=== PATIENT | female | born 1950 | race Caucasian/White ===

== ENCOUNTER 2024-10-03 14:35 | Inpatient (IN) | payer MEDICARE ==
--- NOTE | 2024-10-03 14:41 | ED ---
General Adult HPI - General Stated complaint: Fall, poss R hip fracture Time Seen by Provider: 10/03/24 14:35 Source: patient, RN notes reviewed, old records reviewed - History of Present Illness Initial comments: This is a 74-year-old female who was out on her back porch and she was attempting to kill a spider and then she tripped over her feet fell onto her right hip and now she has right hip pain and is unable to move it. Patient states she has a diabetic but is not on any blood thinners. Patient denies hitting her head or neck. Patient denies any other injury or any other sites of pain. - Related Data Allergies Allergy/AdvReac Type Severity Reaction Status Date / Time bugs Allergy Unknown Uncoded 10/03/24 14:42 Review of Systems ROS Statement: Those systems with pertinent positive or pertinent negative responses have been documented in the HPI. ROS Other: All systems not noted in ROS Statement are negative. General Exam - General Exam Comments Initial Comments: GENERAL: Patient is well-developed and well-nourished. Patient is nontoxic and well- hydrated and is in moderate distress. ENT: Neck is soft and supple. No significant lymphadenopathy is noted. Oropharynx is clear. Moist mucous membranes. Neck has full range of motion without eliciting any pain. EYES: The sclera were anicteric and conjunctiva were pink and moist. Extraocular movements were intact and pupils were equal round and reactive to light. Ey elids were unremarkable. PULMONARY: Unlabored respirations. Good breath sounds bilaterally. No audible rales rhonchi or wheezing was noted. CARDIOVASCULAR: There is a regular rate and rhythm without any murmurs gallops or rubs. ABDOMEN: Soft and nontender with normal bowel sounds. SKIN: Skin is clear with no lesions or rashes and otherwise unremarkable. NEUROLOGIC: Patient is alert and oriented x3. Cranial nerves II through XII are grossly intact. Motor and sensory are also intact. Normal speech, volume and content. Symmetrical smile. MUSCULOSKELETAL: Normal extremities with adequate strength and full range of motion. LYMPHATICS: No significant lymphadenopathy is noted PSYCHIATRIC: Normal psychiatric evaluation. Course Vital Signs 10/03/24 10/03/24 14:37 15:35 Temperature 98.6 F Pulse Rate 90 93 Respiratory 20 20 Rate Blood Pressure 145/79 132/62 O2 Sat by Pulse 99 99 Oximetry Medical Decision Making - Medical Decision Making EKG is interpreted by myself but EKG shows a sinus rhythm at 87 bpm IL interval 163 QRS of 78 QT intervals 351 QTc is 395. Patient's EKG shows no ST segment elevation or depression. Was pt. sent in by a medical professional or institution ([facility], [facility], urgent care, hospital, or snf...) When possible be specific @ -No Did you speak to anyone other than the patient for history (EMS, parent, family, police, friend...)? What history was obtained from this source @ -No Did you review nursing and triage notes (agree or disagree)? Why? @ -I reviewed and agree with nursing and triage notes Were old charts reviewed (outside hosp., previous admission, EMS record, old EKG, old radiological studies, urgent care reports/EKG's, snf records)? Report findings @ -No old charts were reviewed Differential Diagnosis? @ -Differential Musculoskeletal Muscular strain, contusion, ligament sprain, fracture, arthritis, septic arthritis, bursitis, cellulitis, muscle spasm, nerve compression, DVT, arterial occlusion, herpes zoster, electrolyte abnormality, tumor.... This is not meant to be in all inclusive list EKG interpreted by me (3pts min.). @ -As above X-rays interpreted by me (1pt min.). @ -Chest x-ray shows no acute abnormality. X-ray of the hip shows an intertrochanteric hip with slight angulation. CT interpreted by me (1pt min.). @ -None done U/S interpreted by me (1pt. min.). @ -None done What testing was considered but not performed or refused? (CT, X-rays, U/S, labs)? Why? @ -None What meds were considered but not given or refused? Why? @ -None Did you discuss the management of the patient with other professionals (professionals i.e. [facility], [facility], lab, RT, psych nurse, sexual assault social worker, proof passer, teacher, retail loan officer, case maker)? Give summary @ -I spoke with Dr. James and he agrees to admit the patient and I will admit the patient and consult medicine Was smoking cessation discussed for >3mins.? @ -No Was critical care preformed (if so, how long)? @ -No Were there social determinants of health that impacted care today? How? (Homelessness, low income, unemployed, alcoholism, drug addiction, transportation, low edu. Level, literacy, decrease access to med. care, residential, r ehab)? @ -No Was there de-escalation of care discussed even if they declined (Discuss DNR or withdrawal of care, Hospice)? DNR status @ -No What co-morbidities impacted this encounter? (DM, HTN, Smoking, COPD, CAD, Cancer, CVA, ARF, Chemo, Hep., AIDS, mental health diagnosis, sleep apnea, morbid obesity)? @ -None Was patient admitted / discharged? Hospital course, mention meds given and route, prescriptions, significant lab abnormalities, going to OR and other pertinent info. @ -Patient has a right intertrochanteric hip fracture patient was given pain medicines in the emergency department. Patient will be admitted to Dr. James with a consult to medicine for medical clearance for surgery tomorrow Undiagnosed new problem with uncertain prognosis? @ -No Drug Therapy requiring intensive monitoring for toxicity (Heparin, Nitro, Insulin, Cardizem)? @ -No Were any procedures done? @ -No Diagnosis/symptom? @ -Right intertrochanteric hip fracture Acute, or Chronic, or Acute on Chronic? @ -Acute Uncomplicated (without systemic symptoms) or Complicated (systemic symptoms)? @ -Complicated Side effects of treatment? @ -No Exacerbation, Progression, or Severe Exacerbation? @ -No Poses a threat to life or bodily function? How? (Chest pain, USA, NH, pneumonia, PE, COPD, DKA, ARF, appy, cholecystitis, CVA, Diverticulitis, Homicidal, Suicidal, threat to staff... and all critical care pts) @ -No - Lab Data Result diagrams: 10/03/24 14:47 10/03/24 14:47 Lab Results 10/03/24 10/03/24 10/03/24 Range/Units 14:47 14:47 14:47 WBC 6.57 (4.50-10.00) 10*3/uL RBC 4.18 (4.10-5.20) 10*6/uL Hgb 13.6 (12.0-15.0) g/dL Hct 38.0 (37.2-46.3) % MCV 90.9 (80.0-97.0) fL MCH 32.5 H (27.0-32.0) pg MCHC 35.8 (32.0-37.0) g/dL Plt Count 273 (140-440) 10*3/uL MPV 10.0 (9.5-12.2) fL Immature Gran % (Auto) 0.2 % Neutrophils % 67.1 % Lymphocytes % 21.6 % Monocytes % 8.8 % Eosinophils % 1.5 % Basophils % 0.8 % Immature Gran # 0.01 (0.00-0.04) 10*3/uL Neutrophils # 4.41 (1.80-7.70) 10*3/uL Lymphocytes # 1.42 (0.90-5.00) 10*3/uL Monocytes # 0.58 (0.20-1.00) 10*3/uL Eosinophils # 0.10 (0.04-0.35) 10*3/uL Basophils # 0.05 (0.00-0.10) 10*3/uL PT 10.6 (10.0-12.5) sec INR 0.9 (<1.2) APTT 21.7 L (22.0-30.0) sec Sodium 136 L (137-145) mmol/L Potassium 4.4 (3.5-5.1) mmol/L Chloride 101 (98-107) mmol/L Carbon Dioxide 19 L (22-30) mmol/L Anion Gap 16 mmol/L BUN 17 (7-17) mg/dL Creatinine 0.79 (0.52-1.04) mg/dL Est GFR (CKD-EPI)AfAm 85 (>60 ml/min/1.73 sqM) Est GFR (CKD-EPI)NonAf 74 (>60 ml/min/1.73 sqM) Glucose 247 H (74-99) mg/dL Calcium 10.0 (8.4-10.2) mg/dL Total Bilirubin 1.4 H (0.2-1.3) mg/dL AST 18 (14-36) U/L ALT 17 (4-34) U/L Alkaline Phosphatase 125 (38-126) U/L Total Protein 6.9 (6.3-8.2) g/dL Albumin 4.4 (3.5-5.0) g/dL Disposition Clinical Impression: Fall, Intertrochanteric fracture of right hip Disposition: ADMITTED IP TO THIS HOSP Referrals: None,Stated [REFERRING] - 1-2 days Time of Disposition: 16:10
[2024-10-03] MEDS: KETOROLAC 15 MG/ML 1 ML VIAL IVP STA (14:46)
[2024-10-03 15:06] LABS: Basophils # (A) 0.05 10*3/uL (0.00-0.10); Basophils % (A) 0.8 %; Eosinophils % (A) 1.5 %; HGB 13.6 g/dL (12.0-15.0); Lymphocytes # (A) 1.42 10*3/uL (0.90-5.00); Lymphocytes % (A) 21.6 %; MCH 32.5 pg (27.0-32.0); MCHC 35.8 g/dL (32.0-37.0); MCV 90.9 fL (80.0-97.0); Monocytes # (A) 0.58 10*3/uL (0.20-1.00); Monocytes % (A) 8.8 %; Neutrophils # (A) 4.41 10*3/uL (1.80-7.70); Neutrophils % (A) 67.1 %; Platelet Count 273 10*3/uL (140-440); RBC 4.18 10*6/uL (4.10-5.20); RDW 12.8 % (11.5-14.5); WBC 6.57 10*3/uL (4.50-10.00)
[2024-10-03 15:18] LABS: ALT 17 U/L (4-34); AST 18 U/L (14-36); African American GFR (CKD) 85 (>60 ml/min/1.73 sqM); Albumin 4.4 g/dL (3.5-5.0); Alkaline Phosphatase 125 U/L (38-126); Anion Gap 16 mmol/L; Blood Urea Nitrogen 17 mg/dL (7-17); Carbon Dioxide 19 mmol/L (22-30); Chloride 101 mmol/L (98-107); Glucose 247 mg/dL (74-99); Non-African American GFR(CKD) 74 (>60 ml/min/1.73 sqM); Potassium 4.4 mmol/L (3.5-5.1); Sodium 136 mmol/L (137-145); Total Bilirubin 1.4 mg/dL (0.2-1.3); Total Protein 6.9 g/dL (6.3-8.2)
[2024-10-03 15:21] LABS: INR 0.9 (<1.2); Prothrombin Time 10.6 sec (10.0-12.5)
[2024-10-03 15:27] LABS: Partial Thromboplastin Time 21.7 sec (22.0-30.0)
--- NOTE | 2024-10-03 15:36 | XR ---
EXAMINATION TYPE: XR chest 1V portable DATE OF EXAM: 10/03/2024 3:29 PM COMPARISON: Chest radiographs from TECHNIQUE: XR chest 1V portable Portable AP radiograph of the chest. CLINICAL INDICATION:Female, 74 years old with history of Short of breath; FINDINGS: Patient is rotated so evaluation. Lungs/Pleura: There is no evidence of pleural effusion, focal consolidation, or pneumothorax. Pulmonary vascularity: Mild pulmonary vascular congestion. Heart/mediastinum: Cardiomediastinal silhouette is enlarged. Musculoskeletal: No acute osseous pathology. Other: Large hiatal hernia. IMPRESSION: 1. Cardiomegaly and mild pulmonary vascular congestion. Correlate with BNP for congestive heart fail ure. 2. Large hiatal hernia. [facility], , 10/03/2024 3:34 PM
--- NOTE | 2024-10-03 15:39 | XR ---
EXAMINATION TYPE: XR Hip RT and AP Pelvis DATE OF EXAM: 10/03/2024 3:29 PM INDICATION: Patient age:Female; 74 years old; Reason for study: Fall; PHH. pain COMPARISON: None. TECHNIQUE: The right hip was examined in the frontal and lateral projections and a AP pelvis. FINDINGS: Acute mildly displaced intertrochanteric fracture of the right proximal femur. Postsurgical changes with fixation hardware involving the left proximal femur. Posterior changes of both hips wit h joint space narrowing and acetabular sclerosis with marginal osteophytosis. Multilevel degenerative changes of the visualized lumbar spine. No soft tissue swelling. IMPRESSION: 1. Acute mildly displaced intertrochanteric fracture of the right proximal femur. 2. Postsurgical fixation of the left proximal femur. 3. Moderate osteoarthritic changes of both hips. [facility], , 10/03/2024 3:37 PM
[2024-10-03] MEDS: HYDROmorphone 0.5 MG/0.5 ML SYRINGE IVP STA (16:19)
[2024-10-03] MEDS: SODIUM CHLORIDE 0.9% 1,000 ML IV ONE (16:21)
--- NOTE | 2024-10-03 17:20 | P.CONS ---
History of Present Illness - Reason for Consult Consult date: 10/03/24 - History of Present Illness Patient is a 74-year-old female with diabetes mellitus and hypertension presented to the ER after a fall earlier this afternoon. Patient stated that she was out on her back porch and was attempting to kill a spider and that she tripped over fell onto her right hip. Patient now endorses right hip pain and is unable to move it. The last time she had a fall was about 4-5 months ago where she injured her right chest wall. Patient reports taking metformin and lisinopril at home. Denies any use of insulin for her diabetes. Patient denies any cardiac history, history of strokes or MIs, or lung disorders. Patient denies fever, chills, chest pain, shortness of breath, nausea or vomiting, belly pain, diarrhea or constipation. ED documentation reviewed. In the ED patient was treated with 0.5 mg of Dilaudid IV x 1, 15 mg Toradol IV x 1 Vitals on admission temperature 98.6, pulse rate 93, respiratory rate 20, blood pressure 132/62, O2 sat 99% on room air CXR shows cardiomegaly and mild pulmonary vascular congestion. Correlate with BNP for congestive heart failure. Large hiatal hernia. Hip/pelvis x-ray shows acute mildly displaced intertrochanteric fracture of the right proximal femur. Postsurgical fixation of the left proximal femur. Moderate osteoarthritic changes of both hips. Labs on admission show WBC 6.57, hemoglobin 13.6, hematocrit 38, platelet 273, PT 10.6, PTT 21.7, INR 0.9, sodium 136, potassium 4.4, chloride 101, carbon dioxide 19, BUN 17, creatinine 0.79, glucose 247, calcium 10.0, total bili 1.4 Review of systems: Pertinent positives and negatives as discussed in HPI, a complete review of systems was performed and all other systems are negative. PMH: Diabetes Mellitus and hypertension PSH: Appendectomy and right knee replacement and left hip replacement FMH: No pertinent family history Allergies: Bugs Social history: Tobacco: Never smoker Alcohol: Daily alcohol use Recreational drugs: No drug use Travel: No recent travel history Sick contacts: No sick contacts Physical examination: Vital signs reviewed General: nontoxic, no distress, appears at stated age Derm: warm, dry, intact Head: atraumatic, normocephalic, symmetric Eyes: EOMI, anicteric sclera Mouth: no lip lesion, mucus membranes moist Cardiovascular: S1 S2 reg, no murmur Lungs: CTA bilateral, no rhonchi, no rales, no accessory muscle use Abdominal: soft, non-tender to palpation Extremities: No cyanosis, clubbing, or pedal edema. Unable to move right lower extremity due to fracture of right proximal femur and pain. Neuro: Alert, Oriented, Gross neurological examination did not reveal any focal deficits. Psych: well appearing, appropriate affect Assessment/Plan: Patient is a 74-year-old female with type 1 diabetes and hypertension presented to the ER after a fall earlier this afternoon. Patient is being evaluated for fracture of the right proximal femur and has been consulted for preoperative medical clearance. Active: #. Preop clearance for right hip fracture Calculated RCRI score of 0 points Risk of major cardiac event is estimated at 3.9% Order BNP as CXR findings may suggest congestive heart failure NSQIP score 0.4% Patient is medically cleared to undergo repair of right hip fracture #. Hypertension Restart home lisinopril 40 mg at bedtime and amlodipine 5 mg at bedtime after surgery #. Diabetes mellitus Initiate sliding scale insulin after surgery Hold metformin 500 mg twice daily #. Fracture of the right proximal femur Defer pain management, DVT prophylaxis and antibiotics to the primary orthopedic surgery team Chronic: #. Hyperlipidemia Restart Lipitor 10 mg at bedtime Discussed with: Patient I saw and evaluated the patient during the agosto and critical portions of this encounter, and discussed the case in detail with the resident author of this note, I agree with the Assessment and Plan, and my changes, if any, are highlighted in blue. Past Medical History Past Medical History: Diabetes Mellitus, Hypertension Additional Past Medical History / Comment(s): tyoe 1 diabetes History of Any Multi-Drug Resistant Organisms: None Reported Past Surgical History: Appendectomy, Joint Replacement Additional Past Surgical History / Comment(s): R knee replacement, L hip replacement Past Psychological History: No Psychological Hx Reported Smoking Status: Never smoker Past Alcohol Use History: Daily Medications and Allergies Home Medications Medication Instructions Recorded Confirmed Type Atorvastatin [Lipitor] 10 mg PO HS 10/03/24 10/03/24 History Cyclobenzaprine [Flexeril] 10 mg PO HS PRN 10/03/24 10/03/24 History EPINEPHrine (Auto Inject) [Epipen] 0.3 mg IM ONCE PRN 10/03/24 10/03/24 History Vitamin D (Unknown Otc) 1 dose PO FR 10/03/24 10/03/24 History amLODIPine [Norvasc] 5 mg PO HS 10/03/24 10/03/24 History lisinopriL [Zestril] 40 mg PO HS 10/03/24 10/03/24 History metFORMIN HCL ER [Glucophage XR] 500 mg PO BID@1300,2000 10/03/24 10/03/24 History Allergies Allergy/AdvReac Type Severity Reaction Status Date / Time bugs Allergy Anaphylaxis Uncoded 10/03/24 16:34 Physical Exam Osteopathic Statement: *. No significant issues noted on an osteopathic structural exam other than those noted in the History and Physical/Consult. Vitals: Vital Signs Temp Pulse Resp BP Pulse Ox 10/03/24 15:35 93 20 132/62 99 10/03/24 14:37 98.6 F 90 20 145/79 99 Intake and Output 10/03/24 10/03/24 10/03/24 06:59 14:59 22:59 Other: Weight 90.718 kg Results CBC & Chem 7: 10/03/24 14:47 10/03/24 14:47 Labs: Abnormal Lab Results - Last 24 Hours (Table) 10/03/24 10/03/24 10/03/24 Range/Units 14:47 14:47 14:47 MCH 32.5 H (27.0-32.0) pg APTT 21.7 L (22.0-30.0) sec Sodium 136 L (137-145) mmol/L Carbon Dioxide 19 L (22-30) mmol/L Glucose 247 H (74-99) mg/dL Total Bilirubin 1.4 H (0.2-1.3) mg/dL
[2024-10-03] MEDS: ONDANSETRON 4 MG/2 ML VIAL IVP STA (17:54)
[2024-10-03] MEDS ORDERED: HYDROmorphone 1 MG/ML 1 ML SYRINGE IVP PRN ×2 (18:48→18:52)
[2024-10-03] MEDS ORDERED: ACETAMINOPHEN TAB 325 MG TAB PO PRN (18:49)
[2024-10-03] MEDS: ATORVASTATIN 10 MG TAB PO SCH (20:03)
[2024-10-03] MEDS: HYDROcodone/APAP 5-325MG 1 EACH TAB PO PRN (20:06)
[2024-10-03 20:37] LABS: Glucose,Whole Blood 300 mg/dL (70-110)
[2024-10-03] MEDS ORDERED: DEXTROSE 50% SYRINGE 50 ML IVP PRN ×2 (20:58)
[2024-10-03] MEDS: HYDROmorphone 0.5 MG/0.5 ML SYRINGE IVP PRN (21:11)
[2024-10-03] MEDS: INSULIN LISPRO (HumaLOG) 100 UNIT/ML 10 mL VL SQ SCH (21:11)
[2024-10-04] MEDS: ONDANSETRON 4 MG/2 ML VIAL IVP PRN (00:02)
[2024-10-04 01:18] LABS: Glucose,Whole Blood 234 mg/dL (70-110)
[2024-10-04] MEDS: PANTOPRAZOLE 40 MG/10 ML VIAL IVP ONE (01:23)
[2024-10-04] MEDS: PROCHLORPERAZINE INJ 10 MG/2 ML VIAL IVP PRN (01:23)
[2024-10-04 06:08] LABS: Glucose,Whole Blood 230 mg/dL (70-110)
[2024-10-04 08:54] LABS: ALT 16 U/L (8-44); AST 22 U/L (13-35); Alkaline Phosphatase 96 U/L (41-126); BUN/Creat Ratio 25.71 Ratio (12.00-20.00); Calcium 8.9 mg/dL (8.7-10.3); Carbon Dioxide 19.1 mmol/L (21.6-31.8); Chloride 104 mmol/L (96-109); Glucose 295 mg/dL (70-110); Potassium 4.8 mmol/L (3.5-5.5); Sodium 138 mmol/L (135-145); Total Bilirubin 1.3 mg/dL (0.3-1.2)
--- NOTE | 2024-10-04 09:55 | P.PN ---
Subjective Progress Note Date: 10/04/24 Patient is very nauseous this morning, continues to be in pain, pending surgery today. Gen: In NAD, non-toxic HEENT: normocephalic, atraumatic, hearing acuity is intant, mucous membranes moist CVS: perfusing all extremities well, no pitting edema, Respiratory: symmetric chest expansion, no accessory muscle use, GI: soft, NTTP, ND, : no suprapubic tenderness, no CVA tenderness MSK/Derm: no rashes, cyanosis Neuro: CN II-XII intact, no motor weakness, Psych: cooperative, euthymic mood, judgment and insight is intact Hospital Course: Patient is a 74-year-old female with diabetes mellitus and hypertension presented to the ER after a fall earlier this afternoon. Vitals on admission temperature 98.6, pulse rate 93, respiratory rate 20, blood pressure 132/62, O2 sat 99% on room air. Labs on admission show WBC 6.57, hemoglobin 13.6, hematocrit 38, platelet 273, PT 10.6, PTT 21.7, INR 0.9, sodium 136, potassium 4.4, chloride 101, carbon dioxide 19, BUN 17, creatinine 0.79, glucose 247, gabriela cium 10.0, total bili 1.4. CXR shows cardiomegaly and mild pulmonary vascular congestion. Correlate with BNP for congestive heart failure. Large hiatal hernia. Hip/pelvis x-ray shows acute mildly displaced intertrochanteric fracture of the right proximal femur. Postsurgical fixation of the left proximal femur. Moderate osteoarthritic changes of both hips. In the ED patient was treated with 0.5 mg of Dilaudid IV x 1, 15 mg Toradol IV x 1. Assessment/Plan: Patient is a 74-year-old female with type 1 diabetes and hypertension presented to the ER after a fall earlier this afternoon. Patient is being evaluated for fracture of the right proximal femur and has been consulted for preoperative medical clearance. Active: #. Preop clearance for right hip fracture Calculated RCRI score of 0 points Risk of major cardiac event is estimated at 3.9% Order BNP as CXR findings may suggest congestive heart failure, this was low and heart failure was ruled out NSQIP score 0.4% Patient is medically cleared to undergo repair of right hip fracture #. Hypertension Restart home lisinopril 40 mg at bedtime and amlodipine 5 mg at bedtime after surgery #. Diabetes mellitus Initiate sliding scale insulin after surgery Hold metformin 500 mg twice daily #. Fracture of the right proximal femur Defer pain management, DVT prophylaxis and antibiotics to the primary orthopedic surgery team Chronic: #. Hyperlipidemia Restart Lipitor 10 mg at bedtime Discussed with: Patient Objective - Vital Signs Vital signs: Vital Signs Temp 97.7 F 10/04/24 07:10 Pulse 77 10/04/24 07:10 Resp 17 10/04/24 07:10 BP 127/60 10/04/24 07:10 Pulse Ox 93 L 10/04/24 07:10 FiO2 Intake & Output 10/03/24 10/04/24 10/04/24 18:59 06:59 18:59 Output Total 900 Balance -900 Weight 90.718 kg 90.718 kg Output: Urine 900 Uretheral (Fernandez) 450 Other: # Voids 0 # Bowel Movements 0 - Labs CBC & Chem 7: 10/03/24 14:47 10/04/24 02:41 Labs: Abnormal Lab Results - Last 24 Hours (Table) 10/03/24 10/03/24 10/03/24 Range/Units 14:47 14:47 14:47 MCH 32.5 H (27.0-32.0) pg APTT 21.7 L (22.0-30.0) sec Sodium 136 L (137-145) mmol/L Carbon Dioxide 19 L (22-30) mmol/L Anion Gap (4.00-12.00) mmol/L BUN/Creatinine Ratio (12.00-20.00) Ratio Glucose 247 H (74-99) mg/dL POC Glucose (mg/dL) (70-110) mg/dL Total Bilirubin 1.4 H (0.2-1.3) mg/dL Total Protein (6.2-8.2) g/dL 10/03/24 10/04/24 10/04/24 Range/Units 20:36 01:17 02:41 MCH (27.0-32.0) pg APTT (22.0-30.0) sec Sodium (137-145) mmol/L Carbon Dioxide 19.1 L (22-30) mmol/L Anion Gap 14.90 H (4.00-12.00) mmol/L BUN/Creatinine Ratio 25.71 H (12.00-20.00) Ratio Glucose 295 H (74-99) mg/dL POC Glucose (mg/dL) 300 H 234 H (70-110) mg/dL Total Bilirubin 1.3 H (0.2-1.3) mg/dL Total Protein 6.0 L (6.2-8.2) g/dL 10/04/24 Range/Units 06:07 MCH (27.0-32.0) pg APTT (22.0-30.0) sec Sodium (137-145) mmol/L Carbon Dioxide (22-30) mmol/L Anion Gap (4.00-12.00) mmol/L BUN/Creatinine Ratio (12.00-20.00) Ratio Glucose (74-99) mg/dL POC Glucose (mg/dL) 230 H (70-110) mg/dL Total Bilirubin (0.2-1.3) mg/dL Total Protein (6.2-8.2) g/dL
[2024-10-04 11:50] LABS: Glucose,Whole Blood 215 mg/dL (70-110)
--- NOTE | 2024-10-04 12:49 | P.HPOR ---
History of Present Illness H&P Date: 10/04/24 Chief Complaint: Right proximal femur fracture This is a very pleasant 74-year-old female with stated past medical history of hypertension, hyperlipidemia, type 2 diabetes not on insulin, prior left hip fracture around 2010, and total right knee replacement around 2009, who stated on 10/03/2024 they were on their back porch and tripped while trying to kill a spider and landed on the right hip. Patient was unable to ambulate afterwards. Patient had right hip pain immediately afterwards. Patient was brought to the [facility] emergency department on 10/03/2024 and pelvis x-ray images revealed acute mildly displaced intertrochanteric fracture of the right proximal femur. Postsurgical fixation of left proximal femur. Moderate osteoarthritis changes of both hips. Patient denied being on anticoagulation. Orthopedic surgery was consulted. Patient stated they live at home with their son. Patient states prior to recent fall they occasionally had right hip pain. At the time of exam patient complained of isolated right hip pain. Patient denied any other pain after the fall. Patient denies chest pain or shortness of breath. Past Medical History Past Medical History: Diabetes Mellitus, Hypertension Additional Past Medical History / Comment(s): tyoe 1 diabetes History of Any Multi-Drug Resistant Organisms: None Reported Past Surgical History: Appendectomy, Joint Replacement Additional Past Surgical History / Comment(s): R knee replacement, L hip replacement Past Anesthesia/Blood Transfusion Reactions: No Reported Reaction Additional Past Anesthesia/Blood Transfusion Reaction / Comment(s): Pt has never received Blood. Past Psychological History: No Psychological Hx Reported Smoking Status: Never smoker Past Alcohol Use History: Daily Medications and Allergies Home Medications Medication Instructions Recorded Confirmed Type Atorvastatin [Lipitor] 10 mg PO HS 10/03/24 10/03/24 History Cyclobenzaprine [Flexeril] 10 mg PO HS PRN 10/03/24 10/03/24 History EPINEPHrine (Auto Inject) [Epipen] 0.3 mg IM ONCE PRN 10/03/24 10/03/24 History Vitamin D (Unknown Otc) 1 dose PO FR 10/03/24 10/03/24 History amLODIPine [Norvasc] 5 mg PO HS 10/03/24 10/03/24 History lisinopriL [Zestril] 40 mg PO HS 10/03/24 10/03/24 History metFORMIN HCL ER [Glucophage XR] 500 mg PO BID@1300,199910/03/24 10/03/24 History Allergies Allergy/AdvReac Type Severity Reaction Status Date / Time bugs Allergy Anaphylaxis Uncoded 10/03/24 16:34 Physical Examination Patient lying in bed. No acute distress. Head is normocephalic and atraumatic. No pain to palpation over the cervical spine or paraspinal muscles. Bilateral upper extremity exam: Inspection: No sign of obvious deformity. Palpation: Nontender to palpation over bilateral clavicle, scapula, shoulder, humerus, elbow, forearm, wrist, hand, or fingers. Vascular: 2+ radial pulse. Sensation: grossly intact to light touch. Bilateral lower extremity exam: Inspection: Right lower extremity externally rotated. No sign of infection, scars, or open lesions over the anterior or lateral right hip. Palpation: Tenderness over the lateral and anterior right hip. Range of motion: Patient had pain with any attempt of passive range of motion of the hip. Calves were soft to compression, negative Homans' sign. Vascular: Dorsalis pedis pulse 2+ bilaterally. Capillary refill under 2 seconds in all toes. Sensation: grossly intact to light touch throughout the bilateral lower extremities. Results - Labs Labs: Abnormal Lab Results - Last 24 Hours (Table) 10/03/24 10/03/24 10/03/24 Range/Units 14:47 14:47 14:47 MCH 32.5 H (27.0-32.0) pg APTT 21.7 L (22.0-30.0) sec Sodium 136 L (137-145) mmol/L Carbon Dioxide 19 L (22-30) mmol/L Anion Gap (4.00-12.00) mmol/L BUN/Creatinine Ratio (12.00-20.00) Ratio Glucose 247 H (74-99) mg/dL POC Glucose (mg/dL) (70-110) mg/dL Total Bilirubin 1.4 H (0.2-1.3) mg/dL Total Protein (6.2-8.2) g/dL 10/03/24 10/04/24 10/04/24 Range/Units 20:36 01:17 02:41 MCH (27.0-32.0) pg APTT (22.0-30.0) sec Sodium (137-145) mmol/L Carbon Dioxide 19.1 L (22-30) mmol/L Anion Gap 14.90 H (4.00-12.00) mmol/L BUN/Creatinine Ratio 25.71 H (12.00-20.00) Ratio Glucose 295 H (74-99) mg/dL POC Glucose (mg/dL) 300 H 234 H (70-110) mg/dL Total Bilirubin 1.3 H (0.2-1.3) mg/dL Total Protein 6.0 L (6.2-8.2) g/dL 10/04/24 10/04/24 Range/Units 06:07 11:49 MCH (27.0-32.0) pg APTT (22.0-30.0) sec Sodium (137-145) mmol/L Carbon Dioxide (22-30) mmol/L Anion Gap (4.00-12.00) mmol/L BUN/Creatinine Ratio (12.00-20.00) Ratio Glucose (74-99) mg/dL POC Glucose (mg/dL) 230 H 215 H (70-110) mg/dL Total Bilirubin (0.2-1.3) mg/dL Total Protein (6.2-8.2) g/dL H & H 10/03/24 Range/Units 14:47 Hgb 13.6 (12.0-15.0) g/dL Hct 38.0 (37.2-46.3) % Coagulation 10/03/24 Range/Units 14:47 INR 0.9 (<1.2) Result Diagrams: 10/03/24 14:47 10/04/24 02:41 Assessment and Plan Assessment: Right intertrochanteric femur fracture Status post ground-level fall Hypertension Hyperlipidemia Type 2 diabetes not on insulin. Plan: The clinical and x-ray findings were discussed with the patient. The case was discussed and the patient was examined with Dr. James. Treatment options were discussed and surgical intervention is recommended. We discussed the surgical plan of an intramedullary right hip screw as well as the expected postoperative course. Risks and benefits were reviewed including (but not limited to) the risks of infection, bleeding, blood clots, anesthesia- related complications and possible need for additional surgery. Questions were invited and answered. The patient expressed understanding and wishes to proceed with surgery. The patient will be kept on bedrest. Continue PRN pain management. Patient to remain NPO. Scheduled for an intramedullary right hip screw this afternoon.
[2024-10-04 14:52] LABS: Glucose,Whole Blood 185 mg/dL (70-110)
[2024-10-04] MEDS: IV FLUID CONTINUATION 1,000 ML IV ONE (14:52)
[2024-10-04] MEDS: LACTATED RINGERS 1,000 ML BAG IV STA (15:31)
[2024-10-04] MEDS ORDERED: TRANEXAMIC 1,000 MG/100ML-NACL 1,000 MG in SALINE 1 100ML.BAG IVPB PRN (15:36)
[2024-10-04] MEDS ORDERED: SUCCINYLCHOLINE CHLORIDE 200 MG/10 ML VIAL IV ONE (16:01)
[2024-10-04] MEDS ORDERED: fentaNYL (PF) 50 MCG/ML 2 ML AMP ONE (16:01)
[2024-10-04] MEDS ORDERED: TRANEXAMIC 1,000 MG/100ML-NACL PREMIX BAG ONE (16:01)
[2024-10-04] MEDS ORDERED: PROPOFOL 10 MG/ML 20 ML VIAL IV ONE (16:01)
[2024-10-04] MEDS ORDERED: MIDAZOLAM 2 MG/2 ML VIAL ONE (16:01)
[2024-10-04] MEDS: SODIUM CHLORIDE 0.9% 100 ML with ceFAZolin 2,000 MG IV ONE (16:07)
[2024-10-04] MEDS ORDERED: TEMAZEPAM 15 MG CAP PO PRN ×2 (17:18→22:00)
[2024-10-04] MEDS ORDERED: HYDROmorphone 0.5 MG/0.5 ML SYRINGE IVP PRN ×3 (17:18)
[2024-10-04] MEDS ORDERED: diazePAM 5 MG TAB PO PRN ×2 (17:18)
[2024-10-04] MEDS ORDERED: MAGNESIUM HYDROXIDE 2,400 MG/30 ML CUP PO PRN (17:18)
[2024-10-04] MEDS ORDERED: hydrOXYzine pamoate 25 MG CAP PO PRN (17:18)
[2024-10-04] MEDS ORDERED: NALOXONE 0.4 MG/ML 1 ML VIAL IV PRN (17:18)
--- NOTE | 2024-10-04 17:18 | P.OP ---
Date of Procedure: 10/04/24 Preoperative Diagnosis: 1. Right reverse oblique subtrochanteric femur fracture 2. Type 2 diabetes 3. Osteoporosis with prior fragility fracture 4. BMI 32.3 Postoperative Diagnosis: Same Procedure(s) Performed: Operative fixation of right subtrochanteric femur fracture with intermediate length intramedullary hip screw Anesthesia: CRISTHIAN Surgeon: Zaid James Customer Complaint Service Supervisor #1: Laci Angulo Estimated Blood Loss (ml): 300 IV fluids (ml): 800 Pathology: none sent Condition: stable Disposition: PACU Indications for Procedure: I met with the patient and their family preoperatively to discuss their injury and treatment options. They have subtrochanteric femur fracture and my recommendation was to stabilize the fracture with an intramedullary hip screw to facilitate early mobilization. We discussed the potential risks and complications of this surgical procedure including but certainly not limited to risks from anesthesia, superficial infection, deep infection, fracture nonunion, fracture malunion, hardware failure including broken hardware, varus collapse with lag screw cut out of the femoral head, progression of hip arthritis, limb length discrepancy, symptomatic hardware, need for further surgery including hardware removal and conversion to arthroplasty, DVT, PE, acute coronary event, pressure ulcers, urinary tract infection, failure to thrive, an inability to regain preinjury level of function, and possibly . The patient and their family understand these potential complications and also awknowledge that other less common complications are possible. They provided both their verbal and written consent to go forward with operative fixation of their hip fracture with an intramedullary hip screw. Description of Procedure: The patient was identified in preoperative holding and the correct operative extremity was marked with my initials. I reviewed the consent form with the patient and their family and all of their questions were answered. The patient was then brought back to the operating room by anesthesia. Anesthesia, preoperative antibiotics, and tranexamic acid were given by the anesthesia team while on the [facility]. Both ankles were padded with webril and boots for the [place] table were applied. The patient was then carefully transferred onto the [place] table. A perineal post was immediately placed. The contralateral arm was secured on a well-padded arm adams. The ipsilateral arm was draped across the chest and secured with a pillow, foam, and paper tape to allow access to the proximal femur. Nonsterile drapes were applied to the operative extremity. The height of the table was elevated and the contralateral extremity was dropped towards the floor to facilitate imaging. A timeout was performed identifying the correct patient, operative extremity, and procedure. Fluoroscopy was brought in to assess the fracture. A provisional reduction was performed using longitudinal traction, adduction, and internal rotation. An AP and lateral view were obtained to assess the reduction. The operative extremity was then prepped and draped in the standard sterile fashion. A straight incision was made proximal to the tip of the greater trochanter and extended proximally for 3 cm. Skin and subcutaneous tissues were incised sharply. The underlying fascia was incised in line with the skin incision. An awl was placed just medial to the tip of the greater trochanter on the AP view and colinear with the canal on the lateral view. A 3.2 mm guide pin was then advanced into the proximal femur. The position of the guidepin was verified wit h fluoroscopy. An opening reamer and soft tissue cannula were placed over the guidepin and used to open the proximal femur to the level of the lesser trochanter. The 3.2 mm guide pin and opening reamer were removed. A long ball- tipped guide wire was placed into the femur. A reamer was then placed by hand over the ball-tipped guidewire to make sure the canal would accomodate the diameter of the nail. An intermediate length gamma nail was dispensed, hooked up to the targeting arm and I verified that the trochar through the targeting arm lined up with the slots on the nail. The nail was then impacted into the proximal femur until the appropriate depth had been reached. A small stab incision was made over the lateral aspect of the femur using the targeting arm as a reference for the lag screw. Incision was carried down to the skin and fascia down to the lateral cortex of the femur. The trocar was then placed up to the lateral cortex of the femur and a guidepin was placed in the center of the femoral head on both the AP and lateral view. Once the position of the guidewire was verified to have an appropriate tip-apex distance, we reamed to appropriate depth and placed a lag screw over the guidewire and into the femoral head. The position of the lag screw was assessed with fluoroscopy. The guidewire was then removed from the femoral head. The set screw was placed proximally, brought fully down and then released a quarter turn to allow compression. A final stab incision was made over the lateral femur at the site of the distal interlocking screw, again using the targeting arm as a reference. The trocar and sleeve were placed to the lateral cortex of the femur. We then drilled and placed 2 distal interlocking screws through the targeting arm. Final fluoroscopic images were taken showing excellent reduction of the fracture and appropriate position of the implants. All wounds were thoroughly irrigated and closed in layers. Sterile dressings were applied. The drapes were taken down, the patient was transferred off the [place] table, and was brought to recovery having tolerated the procedure well. Laci Angulo PA-C was required as a skilled visitor use assistant due to the complexity of surgery for patient positioning, draping, exposure, retraction, placement of hardware, closure of wounds and application of dressing. PLAN: The patient can weight-bear as tolerated on their operative extremity. 2 doses of postoperative antibiotics. DVT prophylaxis with aspirin 81 mg twice a day starting the day of surgery. Dressing change on postoperative day #2. Appreciate Internal Medical assistance with perioperative medical management. Discharge planning in process.
--- NOTE | 2024-10-04 17:39 | XR ---
Fluoroscopy INDICATION: Pain FINDINGS: Fluoroscopy time: 12.8 seconds. Total dose area product (DAP) in uGy*m?, mGy*cm? (or similar): 4.5918 Images obtained: 3. Images document right hip Gamma nail placement IMPRESSION: 1. Documentation of fluoroscopy. [facility], Workstation: [facility] [place], 10/04/2024 5:37 PM
--- NOTE | 2024-10-04 17:41 | FL ---
Fluoroscopy INDICATION: Pain FINDINGS: Fluoroscopy time: 12.8 seconds. Total dose area product (DAP) in uGy*m?, mGy*cm? (or similar): 4.5918 Images obtained: 3. Images document the procedure. IMPRESSION: 1. Documentation of fluoroscopy. [facility], Workstation: [facility], 10/04/2024 5:38 PM
[2024-10-04] MEDS: METOCLOPRAMIDE 5 MG/ML 2 ML VIAL IVP ONE (18:03)
[2024-10-04 18:28] LABS: Glucose,Whole Blood 258 mg/dL (70-110)
[2024-10-04] MEDS: INSULIN LISPRO (HumaLOG) 100 UNIT/ML 10 mL VL SQ ONE (18:36)
[2024-10-04 20:29] LABS: Glucose,Whole Blood 279 mg/dL (70-110)
[2024-10-04 22:37] LABS: Glucose,Whole Blood 216 mg/dL (70-110)
[2024-10-04] MEDS: ceFAZolin 2 GM in DEXTROSE 5% IN WATER 50 ML IVPB ONE (22:42)
[2024-10-04] MEDS: SENNOSIDES-DOCUSATE SODIUM 1 EACH TAB PO SCH (22:43)
[2024-10-04] MEDS: SODIUM CHLORIDE 0.9% 1,000 ML IV ONE (22:43)
[2024-10-04 23:55] LABS: Basophils # (A) 0.06 10*3/uL (0.00-0.10); Basophils % (A) 0.4 %; HCT 32.5 % (37.2-46.3); HGB 10.7 g/dL (12.0-15.0); Lymphocytes # (A) 0.58 10*3/uL (0.90-5.00); Lymphocytes % (A) 3.5 %; MCHC 32.9 g/dL (32.0-37.0); Mean Platelet Volume 10.9 fL (9.5-12.2); Monocytes % (A) 10.2 %; Neutrophils # (A) 14.33 10*3/uL (1.80-7.70); Neutrophils % (A) 85.5 %; Platelet Count 200 10*3/uL (140-440); RBC 3.34 10*6/uL (4.10-5.20); RDW 13.3 % (11.5-14.5); WBC 16.73 10*3/uL (4.50-10.00)
[2024-10-05 00:35] LABS: MCV 97.3 fL (80.0-97.0)
[2024-10-05] MEDS: ceFAZolin 2 GM in DEXTROSE 5% IN WATER 50 ML IVPB SCH (00:56)
[2024-10-05] MEDS: HYDROcodone/APAP 5-325MG 1 EACH TAB PO PRN (04:15)
[2024-10-05 06:03] LABS: Glucose,Whole Blood 250 mg/dL (70-110)
[2024-10-05 11:44] LABS: Glucose,Whole Blood 291 mg/dL (70-110)
[2024-10-05 11:59] LABS: Basophils # (A) 0.04 10*3/uL (0.00-0.10); Basophils % (A) 0.3 %; Eosinophils # (A) 0.01 10*3/uL (0.04-0.35); Eosinophils % (A) 0.1 %; HCT 27.4 % (37.2-46.3); Lymphocytes # (A) 0.88 10*3/uL (0.90-5.00); Lymphocytes % (A) 7.4 %; MCH 32.3 pg (27.0-32.0); MCHC 33.6 g/dL (32.0-37.0); MCV 96.1 fL (80.0-97.0); Mean Platelet Volume 10.6 fL (9.5-12.2); Monocytes # (A) 1.22 10*3/uL (0.20-1.00); Monocytes % (A) 10.2 %; Neutrophils # (A) 9.74 10*3/uL (1.80-7.70); Neutrophils % (A) 81.7 %; Platelet Count 195 10*3/uL (140-440); RBC 2.85 10*6/uL (4.10-5.20); RDW 13.1 % (11.5-14.5); WBC 11.93 10*3/uL (4.50-10.00)
[2024-10-05 12:01] LABS: HGB 9.2 g/dL (12.0-15.0)
[2024-10-05] MEDS: INSULIN GLARGINE (LANTUS) 100 UNIT/ML SYR SQ SCH (12:47)
--- NOTE | 2024-10-05 14:57 | P.PN ---
Subjective Progress Note Date: 10/05/24 Postop day #1 No acute events overnight. Patient is doing well this morning. The pain in their hip is moderate. They have been up to chair but not able to ambulate to the bathroom yet. They were to physical therapy and it was determined they would need short acute rehab at time of discharge. They deny chest pain or shortness of breath. Objective - Vital Signs Vital signs: Vital Signs Temp 97.7 F 10/05/24 07:37 Pulse 87 10/05/24 07:37 Resp 17 10/05/24 07:37 BP 123/67 10/05/24 07:37 Pulse Ox 95 10/05/24 08:09 FiO2 Intake & Output 10/04/24 10/05/24 10/05/24 18:59 06:59 18:59 Intake Total 600 450 120 Output Total 900 875 Balance -300 -425 120 Weight 90.718 kg 90.718 kg Intake: IV 600 450 Oral 120 Output: Urine 700 875 Uretheral (Fernandez) 300 Estimated Blood Loss 200 Other: Voiding Method Indwelling Catheter Indwelling Catheter Indwelling Catheter - Exam Patient was examined at bedside. Patient is resting comfortably in chair. No apparent distress. They are awake, alert and able to answer questions. Inspection: The surgical dressings are intact. There is a small amount of strikethrough. The skin surrounding the dressing is free of erythema. There is mild swelling in the operative thigh. Palpation: The operative calf is soft to compression. No calf tenderness. Neurovascular: Operative femoral nerve function is intact. The patient is able to actively plantarflex and dorsiflex their operative ankle and toes. Operative extremity sensation is intact to light touch throughout. Their operative foot appears well perfused, palpable dorsalis pedis pulse, and capillary refill under 2 seconds. - Labs CBC & Chem 7: 10/05/24 11:02 10/04/24 02:41 Labs: Abnormal Lab Results - Last 24 Hours (Table) 10/04/24 10/04/24 10/04/24 Range/Units 18:24 20:27 21:19 WBC 16.73 H (4.50-10.00) 10*3/uL RBC 3.34 L (4.10-5.20) 10*6/uL Hgb 10.7 L (12.0-15.0) g/dL Hct 32.5 L (37.2-46.3) % MCV 97.3 H D (80.0-97.0) fL MCH (27.0-32.0) pg Immature Gran # 0.06 H (0.00-0.04) 10*3/uL Neutrophils # 14.33 H (1.80-7.70) 10*3/uL Lymphocytes # 0.58 L (0.90-5.00) 10*3/uL Monocytes # 1.70 H (0.20-1.00) 10*3/uL Eosinophils # 0.00 L (0.04-0.35) 10*3/uL POC Glucose (mg/dL) 258 H 279 H (70-110) mg/dL 10/04/24 10/05/24 10/05/24 Range/Units 22:36 06:01 11:02 WBC 11.93 H (4.50-10.00) 10*3/uL RBC 2.85 L (4.10-5.20) 10*6/uL Hgb 9.2 L D (12.0-15.0) g/dL Hct 27.4 L (37.2-46.3) % MCV (80.0-97.0) fL MCH 32.3 H (27.0-32.0) pg Immature Gran # (0.00-0.04) 10*3/uL Neutrophils # 9.74 H (1.80-7.70) 10*3/uL Lymphocytes # 0.88 L (0.90-5.00) 10*3/uL Monocytes # 1.22 H (0.20-1.00) 10*3/uL Eosinophils # 0.01 L (0.04-0.35) 10*3/uL POC Glucose (mg/dL) 216 H 250 H (70-110) mg/dL 10/05/24 Range/Units 11:43 WBC (4.50-10.00) 10*3/uL RBC (4.10-5.20) 10*6/uL Hgb (12.0-15.0) g/dL Hct (37.2-46.3) % MCV (80.0-97.0) fL MCH (27.0-32.0) pg Immature Gran # (0.00-0.04) 10*3/uL Neutrophils # (1.80-7.70) 10*3/uL Lymphocytes # (0.90-5.00) 10*3/uL Monocytes # (0.20-1.00) 10*3/uL Eosinophils # (0.04-0.35) 10*3/uL POC Glucose (mg/dL) 291 H (70-110) mg/dL Assessment and Plan Assessment: Postop day 1 status post Operative fixation of right subtrochanteric femur f racture with intermediate length intramedullary hip screw Status post ground-level fall Hypertension Hyperlipidemia Type 2 diabetes not on insulin. Plan: Weight-bear as tolerated on the operative extremity. Use a walker to ambulate. Leave surgical dressing in place. DVT prophylaxis with aspirin 81 mg twice a day starting the day of surgery. Physical therapy determined the patient will need discharged to short acute rehab at time of discharge. We appreciate internal medicine for perioperative medical management. Disposition: Plan stay tonight. Transfer to short acute rehab in 24 to 48 hours.
[2024-10-05 16:59] LABS: Glucose,Whole Blood 294 mg/dL (70-110)
--- NOTE | 2024-10-05 17:29 | P.PN ---
Subjective Progress Note Date: 10/05/24 Patient underwent an operative fixation of right subtrochanteric femur fracture with intermediate length intramedullary hip screw yesterday afternoon. Estimated blood loss of 300 cc. Reports pain from the surgery in the right hip. Denies chest pain, shortness of breath, nausea or vomiting, belly pain, diarrhea, fever or chills. Gen: In NAD, non-toxic HEENT: normocephalic, atraumatic, hearing acuity is intant, mucous membranes moist CVS: perfusing all extremities well, no pitting edema, Respiratory: symmetric chest expansion, no accessory muscle use, GI: soft, NTTP, ND, : no suprapubic tenderness, no CVA tenderness MSK/Derm: no rashes, cyanosis, surgical dressing intact on right thigh with no signs of infection, discoloration, erythema or swelling. Neuro: CN II-XII intact, weakness in right lower extremity due to postsurgical pain Psych: cooperative, euthymic mood, judgment and insight is intact Hospital Course: Patient is a 74-year-old female with diabetes mellitus and hypertension presented to the ER after a fall earlier this afternoon. Vitals on admission temperature 98.6, pulse rate 93, respiratory rate 20, blood pressure 132/62, O2 sat 99% on room air. Labs on admission show WBC 6.57, hemoglobin 13.6, hematocrit 38, platelet 273, PT 10.6, PTT 21.7, INR 0.9, sodium 136, potassium 4.4, chloride 101, carbon dioxide 19, BUN 17, creatinine 0.79, glucose 247, calcium 10.0, total bili 1.4. CXR shows cardiomegaly and mild pulmonary vascular congestion. Correlate with BNP for congestive heart failure. Large hiatal hernia. Hip/pelvis x-ray shows acute mildly displaced intertrochanteric fracture of the right proximal femur. Postsurgical fixation of the left proximal femur. Moderate osteoarthritic changes of both hips. In the ED patient was treated with 0.5 mg of Dilaudid IV x 1, 15 mg Toradol IV x 1. Data reviewed today: - Blood sugars in 200s, WBC 11.3, hemoglobin 9.2 Assessment/Plan: Patient is a 74-year-old female with type 1 diabetes and hypertension presented to the ER after a fall earlier this afternoon. Patient is being evaluated for fracture of the right proximal femur and has been consulted for preoperative medical clearance. Active: #. Hypertension Restart home lisinopril 40 mg at bedtime and amlodipine 5 mg at bedtime #. Diabetes mellitus Initiate sliding scale insulin after surgery Initiate 10 unit of Lantus subcu daily Hold metformin 500 mg twice daily #. Fracture of the right proximal femur Leukocytosis, anticipated outcome of surgery Acute blood loss anemia, anticipated outcome of surgery Defer pain management, DVT prophylaxis and antibiotics to the primary orthopedic surgery team Chronic: #. Hyperlipidemia Restart Lipitor 10 mg at bedtime Discussed with: Patient Thank you for allowing us to participate in the care of this pleasant patient. Do not hesitate to contact us with questions. Someone can be reached from the [facility] hospitalist group all hours of the day at [phone] or via [employer]. I have seen and evaluated the patient today. Discussed with the resident and agree with the residents finding and plan as documented in the resident's note. Changes highlighted in blue font. Objective - Vital Signs Vital signs: Vital Signs Temp 97.7 F 10/05/24 07:37 Pulse 87 10/05/24 07:37 Resp 17 10/05/24 07:37 BP 123/67 10/05/24 07:37 Pulse Ox 96 10/05/24 07:37 FiO2 Intake & Output 10/04/24 10/05/24 10/05/24 18:59 06:59 18:59 Intake Total 600 450 Output Total 900 875 Balance -300 -425 Weight 90.718 kg 90.718 kg Intake: IV 600 450 Output: Urine 700 875 Uretheral (Fernandez) 300 Estimated Blood Loss 200 Other: Voiding Method Indwelling Catheter Indwelling Catheter - Labs CBC & Chem 7: 10/05/24 11:02 10/04/24 02:41 Labs: Abnormal Lab Results - Last 24 Hours (Table) 10/04/24 10/04/24 10/04/24 Range/Units 02:41 11:49 14:50 WBC (4.50-10.00) 10*3/uL RBC (4.10-5.20) 10*6/uL Hgb (12.0-15.0) g/dL Hct (37.2-46.3) % MCV (80.0-97.0) fL Immature Gran # (0.00-0.04) 10*3/uL Neutrophils # (1.80-7.70) 10*3/uL Lymphocytes # (0.90-5.00) 10*3/uL Monocytes # (0.20-1.00) 10*3/uL Eosinophils # (0.04-0.35) 10*3/uL Carbon Dioxide 19.1 L (21.6-31.8) mmol/L Anion Gap 14.90 H (4.00-12.00) mmol/L BUN/Creatinine Ratio 25.71 H (12.00-20.00) Ratio Glucose 295 H (70-110) mg/dL POC Glucose (mg/dL) 215 H 185 H (70-110) mg/dL Total Bilirubin 1.3 H (0.3-1.2) mg/dL Total Protein 6.0 L (6.2-8.2) g/dL 10/04/24 10/04/24 10/04/24 Range/Units 18:24 20:27 21:19 WBC 16.73 H (4.50-10.00) 10*3/uL RBC 3.34 L (4.10-5.20) 10*6/uL Hgb 10.7 L (12.0-15.0) g/dL Hct 32.5 L (37.2-46.3) % MCV 97.3 H D (80.0-97.0) fL Immature Gran # 0.06 H (0.00-0.04) 10*3/uL Neutrophils # 14.33 H (1.80-7.70) 10*3/uL Lymphocytes # 0.58 L (0.90-5.00) 10*3/uL Monocytes # 1.70 H (0.20-1.00) 10*3/uL Eosinophils # 0.00 L (0.04-0.35) 10*3/uL Carbon Dioxide (21.6-31.8) mmol/L Anion Gap (4.00-12.00) mmol/L BUN/Creatinine Ratio (12.00-20.00) Ratio Glucose (70-110) mg/dL POC Glucose (mg/dL) 258 H 279 H (70-110) mg/dL Total Bilirubin (0.3-1.2) mg/dL Total Protein (6.2-8.2) g/dL 10/04/24 10/05/24 Range/Units 22:36 06:01 WBC (4.50-10.00) 10*3/uL RBC (4.10-5.20) 10*6/uL Hgb (12.0-15.0) g/dL Hct (37.2-46.3) % MCV (80.0-97.0) fL Immature Gran # (0.00-0.04) 10*3/uL Neutrophils # (1.80-7.70) 10*3/uL Lymphocytes # (0.90-5.00) 10*3/uL Monocytes # (0.20-1.00) 10*3/uL Eosinophils # (0.04-0.35) 10*3/uL Carbon Dioxide (21.6-31.8) mmol/L Anion Gap (4.00-12.00) mmol/L BUN/Creatinine Ratio (12.00-20.00) Ratio Glucose (70-110) mg/dL POC Glucose (mg/dL) 216 H 250 H (70-110) mg/dL Total Bilirubin (0.3-1.2) mg/dL Total Protein (6.2-8.2) g/dL
[2024-10-05] MEDS: lisinopriL 20 MG TAB PO SCH (20:37)
[2024-10-05] MEDS: amLODIPine 5 MG TAB PO SCH (20:37)
[2024-10-05 20:48] LABS: Glucose,Whole Blood 368 mg/dL (70-110)
[2024-10-06 06:08] LABS: Glucose,Whole Blood 221 mg/dL (70-110)
--- NOTE | 2024-10-06 08:22 | P.PN ---
Subjective Progress Note Date: 10/06/24 Postop day #2 No acute events overnight. Patient is doing well this morning. The pain in their hip is moderate. They have been up to chair. They worked with physical therapy and it was determined they would need short acute rehab at time of discharge. They deny chest pain or shortness of breath. Objective - Vital Signs Vital signs: Vital Signs Temp 97.7 F 10/06/24 00:06 Pulse 86 10/06/24 00:06 Resp 18 10/06/24 00:06 BP 109/61 10/06/24 00:06 Pulse Ox 95 10/06/24 00:06 FiO2 Intake & Output 10/05/24 10/06/24 10/06/24 18:59 06:59 18:59 Intake Total 120 Output Total 550 400 Balance -430 -400 Intake: Oral 120 Output: Urine 550 400 Other: Voiding Method Indwelling Catheter Indwelling Catheter # Voids 1 - Exam Patient was examined at bedside. Patient is resting comfortably in chair. No apparent distress. They are awake, alert and able to answer questions. Inspection: The surgical dressings are intact. There is a small amount of strikethrough. The skin surrounding the dressing is free of erythema. There is mild swelling in the operative thigh. Palpation: The operative calf is soft to compression. No calf tenderness. Neurovascular: Operative femoral nerve function is intact. The patient is able to actively plantarflex and dorsiflex their operative ankle and toes. Operative extremity sensation is intact to light touch throughout. Their operative foot appears well perfused, palpable dorsalis pedis pulse, and capillary refill under 2 seconds. - Labs CBC & Chem 7: 10/05/24 11:02 10/04/24 02:41 Labs: Abnormal Lab Results - Last 24 Hours (Table) 10/05/24 10/05/24 10/05/24 Range/Units 11:02 11:43 16:58 WBC 11.93 H (4.50-10.00) 10*3/uL RBC 2.85 L (4.10-5.20) 10*6/uL Hgb 9.2 L D (12.0-15.0) g/dL Hct 27.4 L (37.2-46.3) % MCH 32.3 H (27.0-32.0) pg Neutrophils # 9.74 H (1.80-7.70) 10*3/uL Lymphocytes # 0.88 L (0.90-5.00) 10*3/uL Monocytes # 1.22 H (0.20-1.00) 10*3/uL Eosinophils # 0.01 L (0.04-0.35) 10*3/uL POC Glucose (mg/dL) 291 H 294 H (70-110) mg/dL 10/05/24 10/06/24 Range/Units 20:46 06:04 WBC (4.50-10.00) 10*3/uL RBC (4.10-5.20) 10*6/uL Hgb (12.0-15.0) g/dL Hct (37.2-46.3) % MCH (27.0-32.0) pg Neutrophils # (1.80-7.70) 10*3/uL Lymphocytes # (0.90-5.00) 10*3/uL Monocytes # (0.20-1.00) 10*3/uL Eosinophils # (0.04-0.35) 10*3/uL POC Glucose (mg/dL) 368 H 221 H (70-110) mg/dL Assessment and Plan Assessment: Postop day 2 status post Operative fixation of right subtrochanteric femur fracture with intermediate length intramedullary hip screw Status post ground-level fall Hypertension Hyperlipidemia Type 2 diabetes not on insulin. Plan: Weight-bear as tolerated on the operative extremity. Use a walker to ambulate. Leave surgical dressing in place. DVT prophylaxis with aspirin 81 mg twice a day starting the day of surgery. Physical therapy determined the patient will need discharged to short acute rehab at time of discharge. We appreciate internal medicine for perioperative medical management. Disposition: When patient is cleared by internal medicine patient is cleared from an orthopedic standpoint to transfer to short acute rehab. Start form completed and placed in the patient's chart. A paper prescription for [place] was placed in the patient's chart.
--- NOTE | 2024-10-06 08:43 | P.DS ---
Providers Date of admission: 10/03/24 16:11 Attending physician: Zaid James Consults: 10/03/24 16:10 Consult Physician Urgent Consulting Provider: Elo Saldaña Consult Reason/Comments: Medical clearance for surgery Do you want consulting provider notified?: Already Contacted Primary care physician: Melinda Cao MD Hospital Course: On 10/03/2024 patient presented today to the emergency department with right hip pain status post ground-level fall. On 10/03/2024 they were on their back porch and tripped while trying to kill a spider and landed on the right hip. Patient was unable to ambulate afterwards. Patient had right hip pain immediately afterwards. Patient was brought to the [facility] emergency department on 10/03/2024 and pelvis x-ray images revealed acute mildly displaced in tertrochanteric fracture of the right proximal femur. Postsurgical fixation of left proximal femur. Moderate osteoarthritis changes of both hips. Patient denied being on anticoagulation. Orthopedic surgery was consulted. Patient stated they live at home with their son. Patient states prior to recent fall they occasionally had right hip pain. At the time of exam patient complained of isolated right hip pain. Patient denied any other pain after the fall. Patient denies chest pain or shortness of breath. On 10/04/2024 patient underwent operative fixation of right subtrochanteric femur fracture with intermediate length intramedullary hip screw. Patient tolerated the procedure well. Patient was transferred to the orthopedic floor. Patient no acute events overnight. Patient worked with physical therapy and it was determined that the patient will need transferred to short acute rehab at time of discharge. Patient was examined at bedside this morning. Patient was doing very well. No acute distress. Surgical hip dressings over the right hip had small area of strikethrough. No drainage. No surrounding erythema. Femoral nerve function was grossly intact. Patient is able to plantarflex and dorsiflex bilateral ankles and toes. Patient had a 2+ dorsalis pedis pulse. Patient had intact sensation to bilateral lower extremities to light touch. A start form and prescription for [place] were placed in the patient's chart. Patient may transfer to acute rehab today. Assessment: Postop day 2 status post Operative fixation of right subtrochanteric femur fracture with intermediate length intramedullary hip screw Status post ground-level fall Hypertension Hyperlipidemia Type 2 diabetes not on insulin. Plan - Discharge Summary New Discharge Prescriptions: New Aspirin 81 mg PO BID #60 tab HYDROcodone/APAP 5-325MG [[place] 5] 1 each PO Q6HR PRN #12 tab PRN Reason: Pain Sennosides-Docusate Sodium [Senokot-S] 1 tab PO BID PRN #60 tablet PRN Reason: Constipation Omeprazole 20 mg PO DAILY #30 tab No Action amLODIPine [Norvasc] 5 mg PO HS metFORMIN HCL ER [Glucophage XR] 500 mg PO BID@1299,1999 Vitamin D (Unknown Otc) 1 dose PO FR EPINEPHrine (Auto Inject) [Epipen] 0.3 mg IM ONCE PRN PRN Reason: Anaphylaxis Cyclobenzaprine [Flexeril] 10 mg PO HS PRN PRN Reason: Muscle Spasm/pain Atorvastatin [Lipitor] 10 mg PO HS lisinopriL [Zestril] 40 mg PO HS Discharge Medication List Atorvastatin [Lipitor] 10 mg PO HS 10/03/24 [History] Cyclobenzaprine [Flexeril] 10 mg PO HS PRN 10/03/24 [History] EPINEPHrine (Auto Inject) [Epipen] 0.3 mg IM ONCE PRN 10/03/24 [History] Vitamin D (Unknown Otc) 1 dose PO FR 10/03/24 [History] amLODIPine [Norvasc] 5 mg PO HS 10/03/24 [History] lisinopriL [Zestril] 40 mg PO HS 10/03/24 [History] metFORMIN HCL ER [Glucophage XR] 500 mg PO BID@1299,199910/03/24 [History] Aspirin 81 mg PO BID #60 tab 10/06/24 [Rx] HYDROcodone/APAP 5-325MG [[place] 5] 1 each PO Q6HR PRN #12 tab 10/06/24 [Rx] Omeprazole 20 mg PO DAILY #30 tab 10/06/24 [Rx] Sennosides-Docusate Sodium [Senokot-S] 1 tab PO BID PRN #60 tablet 10/06/24 [Rx] Follow up Appointment(s)/Referral(s): Ines Dimas, [NON-STAFF] - As Needed None,Stated [REFERRING] - 1-2 days Zaid James MD [Medical Doctor] - 2 Weeks Activity/Diet/Wound Care/Special Instructions: 1. Weight-bear as tolerated on your operative extremity unless instructed otherwise. Use a walker or other assistive device to ambulate. 2. Leave surgical dressing in place. If your dressing becomes saturated with blood, there is drainage, or the dressing becomes loose please contact the office. 3. It is okay to shower with your surgical dressing, but do not submerge in water (no hot tubs, bath's, swimming etc.) 4. Take your blood clot prevention medication as prescribed (aspirin, Eliquis, Xarelto, and Plavix are commonly prescribed medications for blood clot prevention) 5. While taking [place] or Percocet for pain take a stool softener (Ex: Colace) and drink lots of water. 6. Keep all follow-up appointments as scheduled. You will usually be seen in 1-2 weeks following surgery. 7. Please contact the office with any questions or concerns [phone] Discharge Disposition: TRANSFER TO SNF/ECF
[2024-10-06 08:52] VITALS: BP 116/67; PULSE 88; RESP 17; TEMP 98.1
[2024-10-06] MEDS: ASPIRIN 81 MG PO SCH (08:54)
[2024-10-06 12:19] LABS: Glucose,Whole Blood 264 mg/dL (70-110)
--- NOTE | 2024-10-06 13:36 | P.PN ---
Subjective Progress Note Date: 10/06/24 Patient was seen at bedside this morning. Denies any acute complaints at this time. Reports appropriate postsurgical pain. Denies fever, chills, chest pain, shortness of breath, nausea or vomiting, belly pain, diarrhea or constipation. Gen: In NAD, non-toxic HEENT: normocephalic, atraumatic, hearing acuity is intant, mucous membranes moist CVS: perfusing all extremities well, no pitting edema, Respiratory: symmetric chest expansion, no accessory muscle use, GI: soft, NTTP, ND, : no suprapubic tenderness, no CVA tenderness MSK/Derm: no rashes, cyanosis, surgical dressing intact on right thigh with no signs of infection, discoloration, erythema or swelling. Neuro: CN II-XII intact, weakness in right lower extremity due to postsurgical pain Psych: cooperative, euthymic mood, judgment and insight is intact Hospital Course: Patient is a 74-year-old female with diabetes mellitus and hypertension presented to the ER after a fall earlier this afternoon. Vitals on admission temperature 98.6, pulse rate 93, respiratory rate 20, blood pressure 132/62, O2 sat 99% on room air. Labs on admission show WBC 6.57, hemoglobin 13.6, hematocrit 38, platelet 273, PT 10.6, PTT 21.7, INR 0.9, sodium 136, potassium 4.4, chloride 101, carbon dioxide 19, BUN 17, creatinine 0.79, glucose 247, calcium 10.0, total bili 1.4. CXR shows cardiomegaly and mild pulmonary vascular congestion. Correlate with BNP for congestive heart failure. Large hiatal hernia. Hip/pelvis x-ray shows acute mildly displaced intertrochanteric fracture of the right proximal femur. Postsurgical fixation of the left pr oximal femur. Moderate osteoarthritic changes of both hips. In the ED patient was treated with 0.5 mg of Dilaudid IV x 1, 15 mg Toradol IV x 1. Assessment/Plan: Patient is a 74-year-old female with type 1 diabetes and hypertension presented to the ER after a fall earlier this afternoon. Patient is being evaluated for fracture of the right proximal femur and has been consulted for preoperative medical clearance. Active: #. Hypertension Continue home lisinopril 40 mg at bedtime and amlodipine 5 mg at bedtime #. Diabetes mellitus Continue sliding scale insulin after surgery Continue 10 unit of Lantus subcu daily Increase metformin to 1000 mg BID at discharge #. Fracture of the right proximal femur status post repair Defer pain management, DVT prophylaxis and antibiotics to the primary orthopedic surgery team Patient is medically optimized to be discharged from our standpoint Chronic: #. Hyperlipidemia Continue Lipitor 10 mg at bedtime Discussed with: Patient Thank you for allowing us to participate in the care of this pleasant patient. Do not hesitate to contact us with questions. Someone can be reached from the [facility] hospitalist group all hours of the day at [phone] or via [employer]. I have seen and evaluated the patient today. Discussed with the resident and agree with the residents finding and plan as documented in the resident's note. Changes highlighted in blue font. Objective - Vital Signs Vital signs: Vital Signs Temp 98.1 F 10/06/24 08:00 Pulse 88 10/06/24 08:00 Resp 17 10/06/24 08:00 BP 116/67 10/06/24 08:00 Pulse Ox 94 L 10/06/24 08:00 FiO2 Intake & Output 10/05/24 10/06/24 10/06/24 18:59 06:59 18:59 Intake Total 120 250 Output Total 550 400 200 Balance -430 -400 50 Intake: Oral 120 250 Output: Urine 550 400 200 Other: Voiding Method Indwelling Catheter Indwelling Catheter # Voids 1 - Labs CBC & Chem 7: 10/05/24 11:02 10/04/24 02:41 Labs: Abnormal Lab Results - Last 24 Hours (Table) 10/05/24 10/05/24 10/05/24 Range/Units 11:02 11:43 16:58 WBC 11.93 H (4.50-10.00) 10*3/uL RBC 2.85 L (4.10-5.20) 10*6/uL Hgb 9.2 L D (12.0-15.0) g/dL Hct 27.4 L (37.2-46.3) % MCH 32.3 H (27.0-32.0) pg Neutrophils # 9.74 H (1.80-7.70) 10*3/uL Lymphocytes # 0.88 L (0.90-5.00) 10*3/uL Monocytes # 1.22 H (0.20-1.00) 10*3/uL Eosinophils # 0.01 L (0.04-0.35) 10*3/uL POC Glucose (mg/dL) 291 H 294 H (70-110) mg/dL 10/05/24 10/06/24 Range/Units 20:46 06:04 WBC (4.50-10.00) 10*3/uL RBC (4.10-5.20) 10*6/uL Hgb (12.0-15.0) g/dL Hct (37.2-46.3) % MCH (27.0-32.0) pg Neutrophils # (1.80-7.70) 10*3/uL Lymphocytes # (0.90-5.00) 10*3/uL Monocytes # (0.20-1.00) 10*3/uL Eosinophils # (0.04-0.35) 10*3/uL POC Glucose (mg/dL) 368 H 221 H (70-110) mg/dL
== END 2024-10-06 14:12 | DRG 481 ==
LOC: EC 14:35 → 4SSUR 16:11
PROVIDERS: ADMIT Orthopaedic Surgery; ATTEND Orthopaedic Surgery
PROC: 8E0YXBF Computer Assisted Procedure of Lower Extremity, With Fluoroscopy (ICD-10-PCS; 2024-10-04)
PROC: 0QS604Z Reposition Right Upper Femur with Internal Fixation Device, Open Approach (ICD-10-PCS; principal; 2024-10-04 10:05)
DX: S72.21XA Displaced subtrochanteric fracture of right femur, initial encounter for closed fracture (principal); D62 Acute posthemorrhagic anemia; I11.0 Hypertensive heart disease with heart failure; I50.9 Heart failure, unspecified; E78.5 Hyperlipidemia, unspecified; D72.829 Elevated white blood cell count, unspecified; E10.9 Type 1 diabetes mellitus without complications; S72.141A Displaced intertrochanteric fracture of right femur, initial encounter for closed fracture; Z79.4 Long term (current) use of insulin; M81.0 Age-related osteoporosis without current pathological fracture; K44.9 Diaphragmatic hernia without obstruction or gangrene; W01.0XXA Fall on same level from slipping, tripping and stumbling without subsequent striking against object, initial encounter; M19.90 Unspecified osteoarthritis, unspecified site; M16.0 Bilateral primary osteoarthritis of hip; Z79.84 Long term (current) use of oral hypoglycemic drugs; Z79.899 Other long term (current) drug therapy; Z96.651 Presence of right artificial knee joint; Z96.642 Presence of left artificial hip joint; Z87.19 Personal history of other diseases of the digestive system; Z91.030 Bee allergy status
CPT/HCPCS: 36415; 71045; 73502; 80053; 83880; 85025; 85610; 85730; 93005; 94760; 96361; 96374; 96375; 99285